=== PATIENT | male | born 1960 | race Caucasian/White ===

== ENCOUNTER 2017-01-03 21:13 | Observation (INO) | payer OTHER ==
[~2017-01-03] VITALS: Ht 185.4 cm; Wt 183.1 kg
--- NOTE | ~2017-01-03 | HP ---
PATIENT'S NAME: DORINA [facility] AGE: 56 Y [address] ROOM: [place] [address] LOCATION: GPCU ADMIT DATE: 01/03/2017 History & Physical DISCHARGE DATE: FAMILY PHYSICIAN: PHYSICIAN, UNKNOWN ATTENDING PHYSICIAN: PATTI BOOGIE DATE OF SERVICE: CHIEF COMPLAINT: A. flutter with RVR. HISTORY OF PRESENT ILLNESS: The patient is a 56-year-old gentleman with past medical history of obesity, who presented to [facility] with A. flutter with RVR. The patient reports that he felt like his heart was racing and felt fatigued today while at work. He had a few episodes of shortness of breath associated with his symptoms. He reports that his heart was fluttery on racing. He denies any chest pain, syncope, change in vision, abdominal pain, nausea, vomiting, productive cough, fever, and chills. He presented to [facility] and was found to have A. flutter with RVR. The patient was seen by Dr. Ayoub and was started on beta-gino and Xarelto. The patient was transferred to our facility for further care with possible TEVIN with cardioversion. The patient denies of having this kind of symptoms in the past and reports that he was a healthy gentleman prior to this. Of note, the patient had a CT of chest with contrast, which was negative for acute pulmonary embolism. MEDICAL HISTORY: Obesity. SURGICAL HISTORY: No surgical history. The patient had colonoscopy recently. FAMILY HISTORY: Grandfather had colon cancer and prostate cancer. Mom has a history of stroke and dad has oral cancer. SOCIAL HISTORY: He is a former smoker, stopped smoking 19 years ago. 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 MEDICATIONS: The patient takes: 1. Magnesium tablets. 2. Multivitamin tablets. PATIENT'S NAME: DORINA [facility] AGE: 56 Y [address] ROOM: [place] [address] LOCATION: GPCU ADMIT DATE: 01/03/2017 History & Physical DISCHARGE DATE: FAMILY PHYSICIAN: PHYSICIAN, UNKNOWN ATTENDING PHYSICIAN: PATTI BOOGIE 3. Aleve. 4. [facility]-3 fatty acid. REVIEW OF SYSTEMS: All systems have been reviewed and are negative except for what I mentioned in HPI. PHYSICAL EXAMINATION: VITAL SIGNS: Temperature afebrile, blood pressure 136/96, heart rate of 95, respiratory rate of 17, and satting 95% on room air. GENERAL APPEARANCE: The patient is obese, lying on the bed in no acute distress. HEAD: Normocephalic, atraumatic. EYES: Extraocular muscle intact. Sclerae nonicteric. NOSE: No nasal discharge. EARS: No ear discharge. MOUTH: Moist oral mucosa. CHEST: Clear to auscultation bilaterally. HEART: Distant heart sounds. No murmurs, rubs, or gallops are heard. Rhythm is regular. ABDOMEN: Soft, nontender, and nondistended. Bowel sounds present. SKIN: Warm to touch. MUSCULOSKELETAL: Range of motion intact. No obvious joint effusion noted. OPERATIONS SPECIALISTS: The patient is alert and oriented x3. Motor and sensory grossly. LABS: Done from outside hospital shows white blood cell count of 7.1, hemoglobin of 12.8, platelet of 211. Sodium of 139, potassium 3.8, chloride of 103, carbon dioxide of 26, BUN of 14, and creatinine of 0.75. EKG shows A. flutter with 2:1 block. ASSESSMENT AND PLAN: 1. Atrial flutter with rapid ventricular response. We will admit the patient. The patient already received Xarelto at outside hospital. The patient is scheduled for TEVIN with possible cardioversion by Dr. Ayoub. We will continue Toprol 25 mg p.o. q.4 p.r.n. for heart rate greater than 100. Keep the patient n.p.o. We will acquire TSH level. 2. Morbid obesity, ongoing. Grade greater than 35 minutes was spent on the patient care. Assessment and plan was discussed with the patient. The patient understands and the patient's question was answered with satisfaction. We will admit the patient for possible TEVIN and cardioversion. We will continue beta-gino use and PATIENT'S NAME: DORINA [facility] AGE: 56 Y [address] ROOM: [place] [address] [facility] ADMIT DATE: 01/03/2017 History & Physical DISCHARGE DATE: FAMILY PHYSICIAN: PHYSICIAN, UNKNOWN ATTENDING PHYSICIAN: PTATI BOOGIE use. MD FLORENCIA HIDALGO/albert /[id number] D: [id number] T: [id number] HISTORY & PHYSICAL
--- NOTE | ~2017-01-03 | ECHO ---
Transesophageal Echocardiography Report (TEVIN) Demographics Patient Name DORINA BERGMAN Date of Study 01/04/2017 Patient Number [id number] Visit Number [id number] Date of 1960 Room Number G6314 Gender Male Number Age 56 year(s) Referring Edin Bustillo Card Writer Hand Christian Reagan RVT, Physician RDCS Physician Interpreting Edin Bustillo Director Quality Systems Physician Supervising Ordering Edin Bustillo MD/MLP Physician Nurse Stress Radar Engineering Teacher Conclusions Summary Severely reduced LV systolic function. LVEF about 25-30%. Global LV hypokinesis. LA is moderately dilated. Normal RA and RV size. MV, TV, PV and AV are grossly normal. Mild MR. Trivial AI. No e/o LAUREN thrombus. Normal LAUREN velocities. No evidence of patent foramen ovale by color Doppler . Bubble study negative for shunt. Procedure Type of Study TEVIN procedure Procedure Date Date: 01/04/2017 Start: 08:47 AM Study Location: Inpatient Portable Technical Quality: Adequate visualization Indications:Atrial fibrillation. Appropriate Use Criteria: 8 Patient Status: Routine Rhythm: Atrial flutter HR: 121 bpm BP: 117/86 mmHg TEVIN Performed By: the attending and the golf cart repairer Findings Miscellaneous The patient was brought to the [facility] lab in the fasting state after informed consent was obtained in the written and verbal format. Once adequate anesthesia was obtained with anesthesia guidance with propofol sedation the TEVIN probe was placed by me down into the stomach. It was pulled back slightly after a few views were obtained in the transgastric level to the transesophageal position where the majority of the case was carried out. At the end of the case the probe was rotated and withdrawn. Patient tolerated the procedure well. Signature dtt: PATTI BOOGIE dtd: 01/04/17 0847 Physician Self Edit
--- NOTE | ~2017-01-03 | OR ---
PATIENT'S NAME: DORINA [facility] AGE: 56 Y [address] ROOM: [place] [address] LOCATION: GPCU ADMIT DATE: 01/03/2017 OR/Procedure Report DISCHARGE DATE: 01/04/2017 FAMILY PHYSICIAN: Link Romero MD ATTENDING PHYSICIAN: Iwona Boogie SURGEON: Iwona Boogie MD HELP DESK TECHNICIAN: DATE OF PROCEDURE: 01/04/2017 TYPE OF PROCEDURE: Direct current cardioversion. INDICATION: The patient with atrial flutter with rapid ventricular response and significant dyspnea on exertion with minimal activity. This is new onset. DESCRIPTION OF PROCEDURE: The patient underwent a TEVIN first to confirm no evidence of left atrial appendage thrombus. After the TEVIN was performed and no evidence of left atrial appendage thrombus, the plan was to proceed with direct current cardioversion. Defibrillator pads were placed in the anterior and posterior position. Deep sedation was provided by Anesthesia team. The patient successfully converted to normal sinus rhythm with one attempt at 200 joules. The patient tolerated the procedure well without any acute complications. The patient's LV systolic function was severely reduced at 25% to 30%. His left atrium was moderately dilated. IMPRESSION: 1. Cardiomyopathy with severely reduced LV systolic function with EF of 25% to 30%. 2. New onset atrial flutter with rapid ventricular response. Successful DCCV x1 attempt at 200 joules, and the patient is now in normal sinus rhythm. PLAN: At this time, given the low EF, we will start beta gino and JERMAINE inhibitor, and reassess his LV systolic function in 2 months. The patient does appear to be euvolemic. We will not add any diuretics. I do think that the cardiomyopathy is likely secondary to tachycardia mediated. If his LV systolic function improves on followup visit, no further testing. However, if it is still reduced, we will need to likely get an ischemic workup. Thank you very much Dr. Romero for allowing us to participate in the care of Mr. Land. PATIENT'S NAME: DORINA [facility] AGE: 56 Y [address] ROOM: [place] [address] LOCATION: GPCU ADMIT DATE: 01/03/2017 OR/Procedure Report DISCHARGE DATE: 01/04/2017 FAMILY PHYSICIAN: Link Romero MD ATTENDING PHYSICIAN: Iwona Boogie IWONA BOOGIE MD AT/modl /[id number] CC: Link Romero MD d: 01/06/17 1538 t: 01/07/17 1210, OPERATIVE SUMMARY
[2017-01-03] MEDS ORDERED: ALEVE220 MG PO (21:30)
[2017-01-03] MEDS ORDERED: OMEGA 3 FISH O1 EACH PO (21:30)
[2017-01-03] MEDS ORDERED: ONCE DAILY1 EACH PO (21:31)
[2017-01-03] MEDS ORDERED: CALCIUM-MAGNES1 EAC5 PO (21:33)
--- NOTE | 2017-01-04 05:46 | NUR ---
Significant Event: Patient alert/oriented x3. Remains on room air. Continues to be in afib/aflutter with HR 80-90's. SBP's 120-150's. Denies any pain. NPO since midnight. Follow up: TEVIN with cardioversion this AM at 0900. Consents still need to be signed due to risks/benefits/alternatives not documented in chart.
--- NOTE | 2017-01-04 12:22 | NUR ---
0916 Came to see Chepe, he was out of his room for a procedure at this time. Will stop back by later to see him and talk with him about dismissal plans. CM to continue to follow and assist.
--- NOTE | 2017-01-04 15:49 | NUR ---
Significant Event: Patient's v/s stable. TEVIN with cardioversion today. Remains in sinus rhythm with rates 70s-80s. Alert and orientated x3. Patient on room air. 3+ edema to bilateral lower extremities. Up with 1 assist. Cardiac diet, patient tolerating well. Follow up: Discharge home 01/04/17
[2017-01-04] MEDS ORDERED: TOPROL XL25 MG PO (16:22)
[2017-01-04] MEDS ORDERED: PRINIVIL (ZESTRI5 MG PO (16:25)
[2017-01-04] MEDS ORDERED: XARELTO20 MG PO (16:27)
== END 2017-01-04 17:06 | disposition disaster alternative care site (69) ==
LOC: GPCU 21:13
PROVIDERS: ADMIT Internal Medicine Interventional Cardiology
DX: I48.92 Unspecified atrial flutter (principal); I42.9 Cardiomyopathy, unspecified; E66.01 Morbid (severe) obesity due to excess calories; Z68.43 Body mass index [BMI] 50.0-59.9, adult; Z87.891 Personal history of nicotine dependence
CPT/HCPCS: J7030

== ENCOUNTER → 2017-01-03 | Outpatient (CLI) | payer OTHER ==
[~2017-01-03] MED LIST: ALEVE220 MG PO; CALCIUM-MAGNES1 EAC5 PO; OMEGA 3 FISH O1 EACH PO; ONCE DAILY1 EACH PO; PRINIVIL (ZESTRI5 MG PO; TOPROL XL25 MG PO; XARELTO20 MG PO
== END | disposition disaster alternative care site (69) ==
LOC: GAMB 20:40
DX: I49.9 Cardiac arrhythmia, unspecified (principal); I48.4 Atypical atrial flutter; I48.91 Unspecified atrial fibrillation; R06.02 Shortness of breath; R79.1 Abnormal coagulation profile; Z79.899 Other long term (current) drug therapy
CPT/HCPCS: A0425; A0426